=== PATIENT | female | born 1985 | race African-American/Black ===

== ENCOUNTER 2017-11-30 00:26 | Emergency (ER) | payer MEDICAID, OTHER ==
[~2017-11-30] VITALS: Ht 162.6 cm; Wt 73.2 kg
[~2017-11-30 00:26] MED LIST: CEPH500C3 PO; HYDR1CRE TOP; PERM5CRE4 TOP; Z.0.NO CURRENT MEDS
[2017-11-30 00:31] VITALS: BP 138/61; PULSE 83; RESP 16; TEMP 99; O2SAT 100
--- NOTE | 2017-11-30 02:05 | PD ---
HPI Chief Complaint: Lump, Cyst, Hernia Time Seen by Provider: 01:42 Travel History International Travel<30 days: No Contact w/Intl Traveler<30days: No Traveled to known affect area: No History of Present Illness HPI The patient is a 31-year-old -[place] female who presents to the emergency department for a sore area under the right nipple. The patient states over the last several days she has had some soreness right behind the right nipple, states she can feel a circular ball-like area that is mobile, slightly tender, but no surrounding erythema. She denies any current drainage from the nipple. 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 She denies any history of breast cancer. The patient denies any fever, chills, or sweats. Symptoms are mild to moderate. There are no current alleviating or exacerbating factors. PFSH Past Medical History Medical History: Denies Significant Hx Diminished Hearing: No Immunizations Current: No ?: Not : 5 Para: 4 Tubal Ligation: Yes Past Surgical History Narrative Surgical Noncontributory Social History Alcohol Use: No Tobacco Use: No Substance Use: No Allergies-Medications (Allergen,Severity, Reaction): Coded Allergies: No Known Allergies (Verified Adverse Reaction, Unknown, 11/30/17) Reported Meds & Prescriptions Reported Meds & Active Scripts Active Elimite (Permethrin) 60 Gm Cr 1 Applic TOP DIRECTED PATIENT INSTRUCTIONS: THOROUGHLY MASSAGE ELIMITE (PERMETHRIN) 5% CREAM INTO THE SKIN FROM HEAD TO TOE COVERING ALL EXTERNAL BODY PARTS. THE CREAM SHOULD BE REMOVED BY WASHING (SHOWER OR BATH) 8 TO 14 HOURS AFTER APPLICATION. PATIENTS MAY EXPERIENCE ITCHING AFTER TREATMENT AND IS RARELY A SIGN OF TREATMENT FAILURE. Hydrocortisone 1 % Cre 1 Applic TOP BID PRN Keflex (Cephalexin Monohydrate) 500 Mg Cap 500 Mg PO QID Reported No Current Meds (Miscellaneous Medication) Misc Review of Systems Except as stated in HPI: all other systems reviewed are Neg General / Constitutional: No: Fever, Chills Cardiovascular: No: Chest Pain or Discomfort Respiratory: No: Cough, Shortness of Breath Skin: Positive Breast Lumps, Positive Breast Tenderness, No Rash Physical Exam Narrative GENERAL: Awake, alert, very pleasant 31-year-old female who appears her stated age and is in no acute respiratory distress. SKIN: Focused skin assessment warm/dry. HEAD: Atraumatic. Normocephalic. EYES: No injection or drainage. Breast: The exam was performed in the presence of a female nurse, Marylu Luo. There is no erythema noted of the right breast or right areolar. No drainage from the right nipple. The patient has a circular 1.5 cm in diameter cyst under the right breast which is mobile, minimally tender. No overlying surrounding erythema. MUSCULOSKELETAL: No obvious deformities. No clubbing. No cyanosis. No edema. NEUROLOGICAL: Awake and alert. No obvious cranial nerve deficits. Motor grossly within normal limits. Normal speech. PSYCHIATRIC: Appropriate mood and affect; insight and judgment normal. Data Data Last Documented VS Vital Signs Date Time Temp Pulse Resp B/P (MAP) Pulse Ox O2 Delivery O2 Flow Rate FiO2 11/30/17 00:31 99.0 83 16 138/61 (86) 100 MDM Medical Decision Making Medical Screen Exam Complete: Yes Emergency Medical Condition: Yes Medical Record Reviewed: Yes Differential Diagnosis Differential diagnosis includes fibrocystic breast disease, breast carcinoma, abscess. Narrative Course The patient will need an outpatient ultrasound of the right breast, she will be referred to the women[facility] care clinic through [facility]. I did advise her to follow -up so they can schedule an outpatient ultrasound of the right breast. Return for erythema, fever, or drainage from the affected area. Diagnosis Primary Impression: Cyst of right breast Referrals: [facility] call for appointment Patient Instructions: General Instructions Additional Instructions: Follow-up at the women's care clinic, you will need an outpatient ultrasound of the right breast. Ibuprofen and Tylenol as needed for pain and/or fever. Med/Other Pt SpecificInfo: No Change to Meds Disposition: 01 DISCHARGE HOME Condition: Stable Bowen Dee MD Nov 30, 2017 02:05
== END 2017-11-30 02:51 | disposition home or self-care (01) ==
LOC: NEPC 00:26
DX: N60.01 Solitary cyst of right breast (principal)
CPT/HCPCS: 99282